=== PATIENT | female | born 1950 | race Caucasian/White ===

== ENCOUNTER 2019-01-04 02:04 | Observation (INO) | payer BC ==
[2019-01-04] MEDS ORDERED: ALBUTEROL/IPRATROPIUM (NEB) 3 ML AMP HHN (05:00)
[2019-01-04] MEDS ORDERED: NACL 0.9% 3 ML SYG IV (05:00)
[2019-01-04] MEDS ORDERED: ONDANSETRON 4 MG INJ IV (05:00)
[2019-01-04] MEDS ORDERED: IBUPROFEN 200 MG TAB PO (05:00)
[2019-01-04] MEDS: DEXAMETHASONE 4 MG/ML 1 ML INJ IV (06:09)
[2019-01-04] MEDS: IBUPROFEN 400 MG TAB PO ×4 (09:04→23:59)
[2019-01-04] MEDS: ENOXAPARIN 40 MG/0.4 ML SYG SC (09:05)
[2019-01-04] MEDS ORDERED: FLU VACC 2019-20(65YR UP)/PF 0.5 ML SYG IM* (19:00)
[2019-01-04] MEDS: ACETAMINOPHEN 325 MG TAB PO (21:41)
[2019-01-04] MEDS: ATORVASTATIN 10 MG TAB PO (21:41)
[2019-01-04] MEDS: CITALOPRAM 20 MG TAB PO (21:42)
[2019-01-05] MEDS: LEVOTHYROXINE 25 MCG TAB PO (06:34)
[2019-01-05] MEDS: ACETAMINOPHEN 325 MG TAB PO (08:27)
[2019-01-05] MEDS: ENOXAPARIN 40 MG/0.4 ML SYG SC (08:31)
[2019-01-05] MEDS: ATORVASTATIN 10 MG TAB PO (21:03)
[2019-01-05] MEDS: CITALOPRAM 20 MG TAB PO (21:04)
[2019-01-05] MEDS: ZOLPIDEM 5 MG TAB PO (23:37)
[2019-01-06] MEDS: ACETAMINOPHEN 325 MG TAB PO ×2 (06:54→12:54)
[2019-01-06] MEDS: LEVOTHYROXINE 25 MCG TAB PO (06:54)
[2019-01-06] MEDS: ENOXAPARIN 40 MG/0.4 ML SYG SC (09:50)
[2019-01-06] MEDS: BUPIVACAINE 0.25% (MPF) 30 ML INJ INJ (11:06)
[2019-01-06] MEDS: BETAMET NA PHOS/AC (6 MG/ML) 5ML INJ INJ (11:06)
[2019-01-06] MEDS ORDERED: FLU VACC 2019-20(65YR UP)/PF 0.5 ML SYG IM* (16:00)
== END 2019-01-06 15:10 | disposition home health service (06) ==
LOC: E/R 02:04 → MS1 02:51
DX: M17.11 Unilateral primary osteoarthritis, right knee (principal); E03.9 Hypothyroidism, unspecified; E78.5 Hyperlipidemia, unspecified; F41.9 Anxiety disorder, unspecified
CPT/HCPCS: 73721; 80053; 80061; 83036; 83735; 84100; 84443; 85025; 96372; 96375; 97110; 97116; 97161; 97164; 99285-25